=== PATIENT | male | born 1950 | race Two or more races ===

== ENCOUNTER → 2017-01-15 | Outpatient (CLI) | payer OTHER ==
[2017-01-15 13:23] LABS: ABSOLUTE BASOPHILS # (AUTO) 0.1 10^3/uL (0.0-0.2); ABSOLUTE EOSINOPHILS # (AUTO) 0.4 10^3/uL (0.0-0.6); ABSOLUTE LYMPHOCYTES (AUTO) 1.8 10^3/uL (0.5-4.7); ABSOLUTE MONOCYTES (AUTO) 0.5 10^3/uL (0.1-1.4); ABSOLUTE NEUT (AUTO) 3.3 10^3/uL (1.7-8.2); BASOPHILS % (AUTO) 1.1 % (0-2); EOSINOPHILS % (AUTO) 7.3 % (0-6); HEMATOCRIT 41.6 % (37.9-51.0); HEMOGLOBIN 13.7 g/dL (13.5-17.0); HGB HCT DIFFERENCE -0.5; LYMPHOCYTES % (AUTO) 29.2 % (13-45); MEAN CORPUSCULAR HEMOGLOBIN 28.6 pg (27.0-33.4); MEAN CORPUSCULAR VOLUME 87 fl (80-97); MONOCYTES % (AUTO) 8.4 % (3-13); RED BLOOD COUNT 4.79 10^6/uL (4.35-5.55); RED CELL DISTRIBUTION WIDTH 14.4 % (11.5-14.0); WHITE BLOOD COUNT 6.1 10^3/uL (4.0-10.5)
[2017-01-15 13:45] LABS: ALANINE AMINOTRANSFERASE 20 U/L (21-72); ALBUMIN 3.4 g/dL (3.5-5.0); ALKALINE PHOSPHATASE 63 U/L (38-126); ANION GAP 7 (5-19); ASPARTATE AMINO TRANSFERASE 14 U/L (17-59); BILIRUBIN,DIRECT 0.2 mg/dL (0.0-0.4); BILIRUBIN,TOTAL 0.4 mg/dL (0.2-1.3); BLOOD UREA NITROGEN 11 mg/dL (7-20); CALCIUM 8.7 mg/dL (8.4-10.2); CARBON DIOXIDE 24 mmol/L (22-30); CHLORIDE 108 mmol/L (98-107); CREATININE RESULT 0.69 mg/dL (0.52-1.25); GLUCOSE 91 mg/dL (75-110); POTASSIUM 4.3 mmol/L (3.6-5.0); SODIUM 139.4 mmol/L (137-145)
[2017-01-15 13:59] LABS: FREE T3 3.69 pg/mL (2.77-5.27)
[2017-01-15 14:13] LABS: THYROID STIMULATING HORMONE 1.75 uIU/mL (0.47-4.68)
[2017-01-15 14:15] LABS: CARCINOEMBRYONIC ANTIGEN 46.7 ng/mL (<3.0)
== END ==
LOC: CCC 11:40
DX: K52.9 Noninfective gastroenteritis and colitis, unspecified (principal)
CPT/HCPCS: 36415; 80053; 82378; 84153; 84439; 84443; 84481; 85025; 87045; 87205

== ENCOUNTER → 2017-04-07 | Outpatient (CLI) | payer SELFPAY ==
--- NOTE | 2017-04-09 09:44 | RADIOLOGY REPORT (SQ) ---
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 TECHNIQUE: Blood glucose level was verified. Above dose of FDG was injected intravenously. 2-D seg mented attenuation correction images were obtained from the base of the skull to the midthighs. Nonc ontrast CT images were obtained for attenuation correction and fusion with emission images. CT image s were performed without oral or intravenous contrast and are not sensitive for parenchymal lesions. A series of overlapping emission PET images were obtained. Images reviewed and manipulated at [facility] work station by the radiologist. Images stored on PACS. LIMITATIONS: None. FINDINGS: HEAD AND NECK: No areas of abnormal metabolic activity in the soft tissues of the head and neck. CHEST: No areas of abnormal metabolic activity in the chest. ABDOMEN AND PELVIS: There is a circumferential rectal mass, with SUV ranging from 5.7 to 8.0. No met abolically active pelvic lymph nodes are identified. No retroperitoneal metabolically active lymph n odes. No liver lesions worrisome for metastatic disease. PROXIMAL LOWER EXTREMITIES: No areas of abnormal metabolic activity in the soft tissues of the lower extremities. BONES: No abnormal metabolic activity in the visualized skeleton. ADDITIONAL CT FINDINGS: Heavy atherosclerotic aortoiliac calcification without aneurysm OTHER: Blood pool background SUV 1.0. Liver background SUV of 1.6 IMPRESSION: Circumferential rectal mass with increased metabolic activity. No PET-CT evidence of local lymph node involvement or distant metastatic disease TECHNICAL DOCUMENTATION: JOB ID: [id number]- All Rights Reserved
== END ==
LOC: RAD 15:47
PROVIDERS: ATTEND Radiology Radiation Oncology
DX: C21.8 Malignant neoplasm of overlapping sites of rectum, anus and anal canal (principal)
CPT/HCPCS: 78815; A9552

== ENCOUNTER 2017-04-16 10:34 | Outpatient (CLI) | payer SELFPAY ==
[~2017-04-16 10:34] MED LIST: CONTAINER EMPTY IV PRN; FLUOROURACIL IV PRN
[2017-04-16 12:13] VITALS: BP 145/82
== END 2017-04-16 12:30 | disposition home or self-care (01) ==
LOC: II 10:34 → 5TH 10:37 → II 12:30
PROVIDERS: ATTEND Internal Medicine Hematology & Oncology
DX: Z51.11 Encounter for antineoplastic chemotherapy (principal); C20 Malignant neoplasm of rectum
CPT/HCPCS: 96416; 96375; J3490; J9190

== ENCOUNTER → 2017-04-18 | Outpatient (CLI) | payer SELFPAY ==
[2017-04-18 14:23] LABS: ABSOLUTE BASOPHILS # (AUTO) 0.1 10^3/uL (0.0-0.2); ABSOLUTE EOSINOPHILS # (AUTO) 0.3 10^3/uL (0.0-0.6); ABSOLUTE LYMPHOCYTES (AUTO) 1.2 10^3/uL (0.5-4.7); ABSOLUTE MONOCYTES (AUTO) 0.4 10^3/uL (0.1-1.4); ABSOLUTE NEUT (AUTO) 3.9 10^3/uL (1.7-8.2); BASOPHILS % (AUTO) 1.1 % (0-2); EOSINOPHILS % (AUTO) 5.6 % (0-6); HEMATOCRIT 39.7 % (37.9-51.0); HEMOGLOBIN 13.9 g/dL (13.5-17.0); LYMPHOCYTES % (AUTO) 19.7 % (13-45); MEAN CORPUSCULAR HEMOGLOBIN 29.8 pg (27.0-33.4); MEAN CORPUSCULAR HGB CONC 34.9 g/dL (32.0-36.0); MEAN CORPUSCULAR VOLUME 85 fl (80-97); MONOCYTES % (AUTO) 7.4 % (3-13); RED BLOOD COUNT 4.66 10^6/uL (4.35-5.55); SEGMENTED NEUTROPHILS % (AUTO) 66.2 % (42-78); WHITE BLOOD COUNT 5.9 10^3/uL (4.0-10.5)
== END ==
LOC: OD 14:04
PROVIDERS: ATTEND Radiology Radiation Oncology
DX: C21.8 Malignant neoplasm of overlapping sites of rectum, anus and anal canal (principal)
CPT/HCPCS: 36415; 85025

== ENCOUNTER 2017-04-22 09:07 | Outpatient (CLI) | payer SELFPAY ==
[2017-04-22 09:37] VITALS: BP 135/84
== END 2017-04-22 10:10 | disposition home or self-care (01) ==
LOC: II 09:07 → 5TH 09:09 → II 10:10
PROVIDERS: ATTEND Internal Medicine Hematology & Oncology
DX: Z51.11 Encounter for antineoplastic chemotherapy (principal); C20 Malignant neoplasm of rectum; F17.210 Nicotine dependence, cigarettes, uncomplicated
CPT/HCPCS: 96416; 96375; A4222; J3490; J9190

== ENCOUNTER → 2017-04-26 | Outpatient (CLI) | payer SELFPAY ==
[2017-04-26 11:05] LABS: ABSOLUTE EOSINOPHILS # (AUTO) 0.2 10^3/uL (0.0-0.6); ABSOLUTE LYMPHOCYTES (AUTO) 0.9 10^3/uL (0.5-4.7); ABSOLUTE MONOCYTES (AUTO) 0.4 10^3/uL (0.1-1.4); ABSOLUTE NEUT (AUTO) 3.7 10^3/uL (1.7-8.2); BASOPHILS % (AUTO) 0.8 % (0-2); EOSINOPHILS % (AUTO) 4.5 % (0-6); HEMATOCRIT 40.2 % (37.9-51.0); HEMOGLOBIN 13.6 g/dL (13.5-17.0); HGB HCT DIFFERENCE 0.6; LYMPHOCYTES % (AUTO) 16.6 % (13-45); MEAN CORPUSCULAR HGB CONC 33.9 g/dL (32.0-36.0); MEAN CORPUSCULAR VOLUME 86 fl (80-97); MONOCYTES % (AUTO) 7.5 % (3-13); RED CELL DISTRIBUTION WIDTH 13.7 % (11.5-14.0); SEGMENTED NEUTROPHILS % (AUTO) 70.6 % (42-78); WHITE BLOOD COUNT 5.2 10^3/uL (4.0-10.5)
== END ==
LOC: OD 09:43
PROVIDERS: ATTEND Radiology Radiation Oncology
DX: C21.8 Malignant neoplasm of overlapping sites of rectum, anus and anal canal (principal)
CPT/HCPCS: 36415; 85025

== ENCOUNTER → 2017-04-29 | Outpatient (CLI) | payer MEDICAID ==
[2017-04-29 10:20] VITALS: BP 132/70
== END | disposition home or self-care (01) ==
LOC: II 09:00
PROVIDERS: ATTEND Internal Medicine
DX: Z51.11 Encounter for antineoplastic chemotherapy (principal); C20 Malignant neoplasm of rectum
CPT/HCPCS: 96416; A4222; J3490; J9190; 96523

== ENCOUNTER 2017-05-13 11:15 | Outpatient (CLI) | payer SELFPAY ==
[2017-05-13 11:46] VITALS: BP 136/70
== END 2017-05-13 12:19 | disposition home or self-care (01) ==
LOC: II 11:15
PROVIDERS: ATTEND Internal Medicine
DX: Z51.11 Encounter for antineoplastic chemotherapy (principal); C20 Malignant neoplasm of rectum
CPT/HCPCS: 96416; 96523; A4222; J3490; J9190

== ENCOUNTER 2017-05-20 09:59 | Outpatient (CLI) | payer SELFPAY ==
[2017-05-20] MEDS ORDERED: CONTAINER EMPTY IV PRN (10:51)
[2017-05-20] MEDS ORDERED: FLUOROURACIL IV PRN (10:51)
[2017-05-20 11:41] VITALS: BP 126/69
== END 2017-05-20 12:18 | disposition home or self-care (01) ==
LOC: II 09:59 → 5TH 10:00 → II 12:18
PROVIDERS: ATTEND Internal Medicine Hematology & Oncology
DX: Z51.11 Encounter for antineoplastic chemotherapy (principal); C20 Malignant neoplasm of rectum
CPT/HCPCS: 96416; A4222; J3490; J9190; 96375

== ENCOUNTER 2017-05-27 09:27 | Outpatient (CLI) | payer SELFPAY ==
[2017-05-27 09:46] VITALS: BP 108/52
== END 2017-05-27 10:43 | disposition home or self-care (01) ==
LOC: II 09:27 → 5TH 09:30 → II 10:43
PROVIDERS: ATTEND Internal Medicine Hematology & Oncology
DX: Z51.11 Encounter for antineoplastic chemotherapy (principal); C20 Malignant neoplasm of rectum
CPT/HCPCS: 96416; 96523; A4222; J3490; J9190

== ENCOUNTER → 2017-06-03 | Outpatient (CLI) | payer MEDICAID ==
[2017-06-03 15:24] LABS: ALANINE AMINOTRANSFERASE 24 U/L (21-72); ALBUMIN 3.8 g/dL (3.5-5.0); ALKALINE PHOSPHATASE 69 U/L (38-126); ANION GAP 15 (5-19); ASPARTATE AMINO TRANSFERASE 13 U/L (17-59); BILIRUBIN,DIRECT 0.4 mg/dL (0.0-0.4); BILIRUBIN,TOTAL 0.4 mg/dL (0.2-1.3); BLOOD UREA NITROGEN 12 mg/dL (7-20); CALCIUM 9.4 mg/dL (8.4-10.2); CARBON DIOXIDE 22 mmol/L (22-30); CHLORIDE 103 mmol/L (98-107); CREATININE RESULT 0.77 mg/dL (0.52-1.25); GLUCOSE 188 mg/dL (75-110); POTASSIUM 3.6 mmol/L (3.6-5.0); SODIUM 139.5 mmol/L (137-145); TOTAL PROTEIN 6.6 g/dL (6.3-8.2)
[2017-06-03 15:54] LABS: CARCINOEMBRYONIC ANTIGEN 16.1 ng/mL (<3.0)
== END ==
LOC: OD 14:05
PROVIDERS: ATTEND Internal Medicine Hematology & Oncology
DX: C20 Malignant neoplasm of rectum (principal)
CPT/HCPCS: 36415; 80053; 82378

== ENCOUNTER 2018-02-11 11:31 | Outpatient (CLI) | payer MEDICARE, MEDICAID ==
[~2018-02-11 11:31] MED LIST changes: +DEXTROSE 5% IV PRN; +DISPOSABLE IV PRN; +LEUCOVORIN CALCIUM IV PRN; +NORMAL SALINE 250 ML IV PRN; +WATER IV PRN
[2018-02-11 11:56] VITALS: BP 122/85
== END 2018-02-11 15:19 | disposition home or self-care (01) ==
LOC: II 11:31 → 5TH 11:41 → II 15:19
PROVIDERS: ATTEND Internal Medicine Hematology & Oncology
PROC: 3E04305 Introduction of Other Antineoplastic into Central Vein, Percutaneous Approach (ICD-10-PCS; principal; 2018-02-11)
PROC: 3E043GC Introduction of Other Therapeutic Substance into Central Vein, Percutaneous Approach (ICD-10-PCS; 2018-02-11)
DX: Z51.11 Encounter for antineoplastic chemotherapy (principal); C20 Malignant neoplasm of rectum
CPT/HCPCS: 96411; 96413; 96415; 96366; 96367; A9270; J9190; J7060; J3490; 96360; 96374; 96409; 96416; 96417

== ENCOUNTER 2018-10-20 09:10 | Day surgery (SDC) | payer MEDICARE, MEDICAID ==
[~2018-10-20 09:10] MED LIST changes: -CONTAINER EMPTY IV PRN; -DEXTROSE 5% IV PRN; -DISPOSABLE IV PRN; -FLUOROURACIL IV PRN; -LEUCOVORIN CALCIUM IV PRN; -NORMAL SALINE 250 ML IV PRN; +PROPOFOL INJ 200 MG/20 ML VIAL IV ONE; -WATER IV PRN
[2018-10-20 10:50] VITALS: BP 109/75
--- NOTE | 2018-10-20 13:04 | Operative Report ---
Operative Report DATE OF SURGERY: 10/20/18 Operative Report: The risks, benefits and alternatives of the procedure including the risk of bleeding, perforation requiring surgery have been explained to the patient in detail and informed consent has been obtained. Patient is brought back to the endoscopy suite and placed in a left, lateral decubital position. Timeout was called. Propofol medication is administered. Rectal examination is done which did not reveal any masses, tears or fissures. An Olympus videoscope was introduced into the patient's rectum. The scope was then carefully advanced all the way to the cecum. The cecum was identified by the usual anatomical landmarks including the ileocecal valve as well as the appendiceal office. Photodocumentation is obtained. The scope was then sequentially pulled back via the various segments of the colon including the ascending colon, hepatic flexure, transverse colon, splenic flexure, descending colon and finally into the rectosigmoid portions of the colon. Retroflexion maneuver was performed. PREOPERATIVE DIAGNOSIS: Personal history of colon cancer in the rectum. Surveillance colonoscopy POSTOPERATIVE DIAGNOSIS: Anastomotic site noted previous suture material is noted, there is slight thickening at the area status post biopsy rule out for possible recurrence. OPERATION: Colonoscopy with biopsy SURGEON: SHANNAN CESPEDES ANESTHESIA: LMAC TISSUE REMOVED OR ALTERED: As noted above COMPLICATIONS: None. ESTIMATED BLOOD LOSS: None. INTRAOPERATIVE FINDINGS: As noted above. PROCEDURE: Patient tolerated the procedure well. No immediate postprocedure complications are noted. Patient discharged in good condition. Discharge date 10/20/2018. Discharge diet: Regular. Discharge activity: Regular. 2-3-week follow-up to discuss findings. Patient is instructed to call the office or proceed to the emergency room should there be any further problems or questions. Wait on the pathology. 3-year surveillance colonoscopy.
== END 2018-10-20 10:40 | disposition home or self-care (01) ==
LOC: END 09:10
PROVIDERS: ATTEND Internal Medicine Gastroenterology
PROC: 0DBE8ZX Excision of Large Intestine, Via Natural or Artificial Opening Endoscopic, Diagnostic (ICD-10-PCS; principal; 2018-10-20 12:00)
DX: Z12.11 Encounter for screening for malignant neoplasm of colon (principal); Z85.048 Personal history of other malignant neoplasm of rectum, rectosigmoid junction, and anus; F17.200 Nicotine dependence, unspecified, uncomplicated
CPT/HCPCS: 45380; 811; 88305; J2704